=== PATIENT | male | born 1990 | race Two or more races ===

== ENCOUNTER 2024-05-15 16:53 | Emergency (ER) | payer SELFPAY ==
[2024-05-15 17:11] VITALS: BP 131/95; PULSE 78; RESP 18; TEMP 36.6; O2SAT 100
--- NOTE | 2024-05-15 17:13 | ED_ITS ---
HPI - Wound/Laceration General Chief Complaint: Wound/Laceration <Zaynab Krishna APRN - Last Filed: 05/15/24 19:27> Stated Complaint: Burn to left foot 05/04/24 <Zaynab Krishna APRN - Last Filed: 05/15/24 19:27> Time Seen by Provider: 05/15/24 17:12 <Zaynab Krishna APRN - Last Filed: 05/15/24 19:27> History of Present Illness HPI narrative: Patient is a 33-year-old male who presents to the ER with complaints of a left foot burn sustained on May 03, 2024. He reports he was cooking and spilled water onto the top of his foot. Patient reports he did not initially seek medical treatment as he thought he could manage it on his home. He reports he initially put hydrogen peroxide on the site to prevent infection. Now he has been treating the wound every day with wound cleanser, neosporin and [id number] silver nitrate. Patient reports he has no insurance and is not able to pay for much medical treatment. He denies any fevers, decreased range of motion, numbness/tingling, increased pain in his left lower extremity. Patient denies any other pertinent medical history relevant this ER visit. <Zaynab Krishna APRN - Last Filed: 05/15/24 19:27> Related Data Allergies/Adverse Reactions: Allergies Allergy/AdvReac Type Severity Reaction Status Date / Time No Known Allergies Allergy Verified 05/15/24 16:55 <Zaynab Krishna APRN - Last Filed: 05/15/24 19:27> Review of Systems Review of Systems: All systems reviewed & are unremarkable except as noted in HPI and below <Zaynab Krishna APRN - Last Filed: 05/15/24 19:27> Exam Narrative: GENERAL: Well appearing, well-nourished, non-toxic, in no acute distress. HEAD: Normocephalic, atraumatic. NECK: Supple. No adenopathy, no masses. RESPIRATORY: Airway patent, respirations nonlabored. Clear to auscultation bilaterally, no rales, rhonchi, wheezing. CARDIOVASCULAR: Regular rate and rhythm without murmurs, rubs, or gallops. Peripheral pulses 2+ and equal bilaterally. ABDOMINAL: Soft, nontender, nondistended, no hepatosplenomegaly. Normoactive BS. MUSCULOSKELETAL: Moves all extremities. Strength/ROM intact without gross deformities. SKIN: Warm, dry, normal color. No rashes. L foot has full/partial burn wound to approximately 60% of the dorsum pedis. No noticeable tendon, ligament, or muscle involvement. Minimal amount of pus coming from distal portion of open wound. NEURO: A&O X3. Speech clear. Cranial nerves II-XII intact. No ataxic movements. PSYCHIATRIC: Appropriate mood and affect. Normal interaction. <Zaynab Krishna APRN - Last Filed: 05/15/24 19:27> Course LIFE CLAIMS EXAMINER/PA Physician Supervision This visit was performed by both a physician and an APC. I performed all aspects of the MDM as documented. <Jose A Ramires MD - Last Filed: 05/15/24 20:45> Vital Signs Vital signs: Vital Signs Temperature 97.8 F 05/15/24 17:11 Pulse Rate 78 05/15/24 17:11 Respiratory Rate 18 05/15/24 17:11 Blood Pressure 131/95 H 05/15/24 17:11 Pulse Oximetry 100 05/15/24 17:11 Oxygen Delivery Room Air 05/15/24 17:11 Temperature 97.8 F 05/15/24 17:11 Pulse Rate 86 05/15/24 19:07 Respiratory Rate 16 05/15/24 19:07 Blood Pressure 136/91 H 05/15/24 19:07 Pulse Oximetry 100 05/15/24 19:07 Oxygen Delivery Room Air 05/15/24 17:11 <Zaynab Krishna POULTRY HATCHERY SUPERVISOR - Last Filed: 05/15/24 19:27> Vital Signs Temperature 97.8 F 05/15/24 17:11 Pulse Rate 78 05/15/24 17:11 Respiratory Rate 18 05/15/24 17:11 Blood Pressure 131/95 H 05/15/24 17:11 Pulse Oximetry 100 05/15/24 17:11 Oxygen Delivery Room Air 05/15/24 17:11 Temperature 97.8 F 05/15/24 17:11 Pulse Rate 86 05/15/24 19:07 Respiratory Rate 16 05/15/24 19:07 Blood Pressure 136/91 H 05/15/24 19:07 Pulse Oximetry 100 05/15/24 19:07 Oxygen Delivery Room Air 05/15/24 17:11 <Jose A Ramires MD - Last Filed: 05/15/24 20:45> MDM - Wound/Laceration MDM Narrative Medical decision making narrative: Patient is a 33-year-old male who presents to the ER with complaints of a left foot burn sustained on May 03, 2024. He reports he was cooking and spilled water onto the top of his foot. Patient reports he did not initially seek medical treatment as he thought he could manage it on his home. He reports he initially put hydrogen peroxide on the site to prevent infection. Now he has been treating the wound every day with wound cleanser, neosporin and [id number] silver nitrate. Patient reports he has no insurance and is not able to pay for much medical treatment. He denies any fevers, decreased range of motion, numbness/tingling, increased pain in his left lower extremity. Patient denies any other pertinent medical history relevant this ER visit. Labs Ordered: None necessary Imaging Ordered: None necessary Medications Ordered: Bactrim PO, Patient is adamant that he does not want any excessive treatment as he does not have medical insurance. When patient was advised to follow-up with Plastic surgery he reports he may be able to do so once he obtains insurance. He was hesitant for LIFE CLAIMS EXAMINER to even speak to plastic surgery for consult over the phone. Diagnosis: partial/full thickness burn to L foot Consults: plastic surgery (outpatient) Patient Education/Shared MDM: Results of examination shared with patient. Patient strongly advised to follow-up with plastic surgery as soon as possible. He will be discharged home with a prescription for silvadene and Bactrim PO. Strict return precautions provided. Patient verbalized understanding and is in agreement with plan. Vital signs stable at time of discharge. All questions answered. <Zaynab Krishna APRN - Last Filed: 05/15/24 19:27> Differential Diagnosis Differential diagnosis: Likely other (partial thickness burn, full thickness burn, skin infection) <Zaynab Krishna APRN - Last Filed: 05/15/24 19:27> Discharge Plan Discharge Clinical Impression: Partial thickness burn of left foot, Burn erythema of left foot, Full thickness burn of left foot <Zaynab Krishna APRN - Last Filed: 05/15/24 19:27> Patient Disposition: Home, Self-Care <Zaynab Krishna APRN - Last Filed: 05/15/24 19:27> Condition: Stable <Zaynab Krishna APRN - Last Filed: 05/15/24 19:27> Instructions: Antibiotic Form, Second-Degree Burn (ED) <Zaynab Krishna APRN - Last Filed: 05/15/24 19:27> Additional Instructions: Please return to the ER with any worsening symptoms. Follow-up with primary care provider as soon as possible. Take all medications as prescribed, including regularly scheduled medications. Please follow-up General surgery or Plastic surgery for further treatment. <Zaynab Krishna APRN - Last Filed: 05/15/24 19:27> Patient Language: Macedonian <Zaynab Krishna APRN - Last Filed: 05/15/24 19:27> Prescriptions: New silver sulfadiazine [Silvadene] 1 % cream 1 applic topical BID Qty: 50 0RF Rx Instructions: apply a 1.5 mm thickness sulfamethoxazole-trimethoprim [Bactrim DS] 800-160 mg tablet 1 tablet PO Q12H 5 Days Qty: 10 0RF <Zaynab Krishna APRN - Last Filed: 05/15/24 19:27> Follow-up/Referrals: Nelson Munoz MD [Physician] - (plastic surgery ) PHYSICIAN,VETERINARIAN EPIDEMIOLOGIST [Primary Care Provider] - Julien Noble MD [Physician] - (general surgery) <Zaynab Krishna APRN - Last Filed: 05/15/24 19:27> Time of Disposition: 18:09 <Zaynab Krishna APRN - Last Filed: 05/15/24 19:27> 18:09 <Jose A Ramires MD - Last Filed: 05/15/24 20:45>
[2024-05-15 19:07] VITALS: BP 136/91; PULSE 86; RESP 16; O2SAT 100
[2024-05-15] MEDS: SULFAMETHOXAZOLE/TRIMETHOPRIM 800/160 MG DS TABLET 1 TAB PO (19:07)
[2024-05-15] MEDS: SILVER SULFADIAZINE 1% CR 50 GM JAR (*BKC) 1 APPLIC TOPICAL (19:07)
== END 2024-05-15 19:10 | disposition home or self-care (01) ==
PROVIDERS: Emergency Provider Registered Nurse
DX: T25.322A Burn of third degree of left foot, initial encounter (principal); T31.0 Burns involving less than 10% of body surface; X12.XXXA Contact with other hot fluids, initial encounter; Y93.G3 Activity, cooking and baking
CPT/HCPCS: 16020; 16025; 87070; 87075; 87181; 87205; 99283; A9270